=== PATIENT | female | born 1950 | race Caucasian/White ===

== ENCOUNTER 2016-06-26 14:34 | Emergency (ER) | payer OTHER ==
[~2016-06-26] VITALS: Ht 147.3 cm; Wt 70.0 kg
[~2016-06-26 14:34] MED LIST: ALBU0.086 NEB; ALBU6.7H INH; CYCL-36 PO; DILA2TAB4 PO; METF850T PO; NEBUKIT4; OMEP20CA5 PO; ZOVI400T15 PO
[2016-06-26 14:40] VITALS: BP 132/80; PULSE 86; RESP 16; TEMP 97.6; O2SAT 96
[2016-06-26 15:12] LABS: BLOOD, URINE SMALL (NEG); KETONE, URINE NEG (NEG); NITRITE,URINE NEG (NEG)
[2016-06-26 15:15] LABS: GLUCOSE,URINE 1000 OR GREATER mg/dL (NEG)
[2016-06-26] MEDS ORDERED: CRANCAP2 PO (15:16)
[2016-06-26] MEDS ORDERED: OMEP40CA2 PO (15:16)
[2016-06-26] MEDS ORDERED: DICL50TA3 PO (15:16)
[2016-06-26] MEDS ORDERED: ACYC400T PO (15:16)
[2016-06-26] MEDS ORDERED: METF500T PO (15:16)
--- NOTE | 2016-06-26 15:17 | PD ---
HPI Chief Complaint: Musculoskeletal Complaint Time Seen by Provider: 15:02 Travel History International Travel<30 days: No Contact w/Intl Traveler<30days: No Traveled to known affect area: No History of Present Illness HPI The patient was seen and examined in the presence of the nurse. She complains of back pain. She's had chronic back pain for years but it has been worse in the last 3 months. She seen both her primary physician and her neurosurgeon for this. She has been taking Motrin. Some severity is moderate. Worse with movement. She also complains of urinary frequency. No fever or acute injury. PFSH Past Medical History Arthritis: Yes Asthma: Yes Autoimmune Disease: No Blood Disorders: No Anxiety: No Depression: No Cancer: No Cardiovascular Problems: Yes High Cholesterol: Yes Chemotherapy: No Cerebrovascular Accident: Yes (since 1993) Diabetes: Yes (NON-INSULIN, ON METFORMIN) Diminished Hearing: No Endocrine: Yes Gastrointestinal Disorders: Yes (occ problems with n/v) GERD: Yes Glaucoma: No Genitourinary: No Headaches: No Hepatitis: Yes (HEPATITIS A-1966) Hiatal Hernia: Yes Hypertension: Yes (mild on no meds) Immune Disorder: No Kidney Stones: No Musculoskeletal: Yes Neurologic: Yes Psychiatric: No Reproductive: No Respiratory: Yes (pseudomonas [id number]) Migraines: Yes (1993) Radiation Therapy: No Renal Failure: No Seizures: No Sickle Cell Disease: No Thyroid Disease: No Ulcer: No Menopausal: Yes Past Surgical History Abdominal Surgery: Yes (myomectomy) AICD: No Appendectomy: No Arteriovenous Shunt: No Body Medical Devices: CERVICAL HARDWARE Cardiac Surgery: No Cholecystectomy: No Ear Surgery: No Endocrine Surgery: No Eye Surgery: No Genitourinary Surgery: Yes (bladder repair) Gynecologic Surgery: Yes Insulin Pump: No Joint Replacement: No Neurologic Surgery: Yes (ANTERIOR CERVICAL FUSION X 2) Oral Surgery: Yes (MANDIBLE TORUS EXCISION) Pacemaker: No Thoracic Surgery: No Other Surgery: Yes (LEFT CARPEL TUNNEL) Social History Alcohol Use: Yes (couple glasses of wine per week) Tobacco Use: No Substance Use: No Allergies-Medications (Allergen,Severity, Reaction): Coded Allergies: Cipro (Verified Allergy, Severe, ANAPHYLAXIS, 06/26/16) Codeine (Verified Allergy, Severe, ANAPHYLAXIS, 06/26/16) Demerol (Unverified Allergy, Severe, itching, 06/26/16) Hydrocodone (Verified Allergy, Severe, Anaphylaxis, 06/26/16) Keflex (Verified Allergy, Severe, ANAPHYLAXIS, 06/26/16) Nucynta (Verified Allergy, Severe, Anaphylaxis, 06/26/16) Sulfa (Verified Allergy, Severe, ANAPHYLAXIS, 06/26/16) Augmentin (Verified Adverse Reaction, Mild, GI UPSET, 06/26/16) E.E.S.-400 (Verified Adverse Reaction, Mild, GI UPSET, 06/26/16) Reported Meds & Prescriptions Reported Meds & Active Scripts Active Percocet (Oxycodone-Acetaminophen) 5-325 mg Tab 1 Tab PO Q6H PRN Reported Cranberry Urinary Comfort (Vitamins C & E) 1 Cap 1 Cap PO DAILY Acyclovir 400 Mg Tab 400 Mg PO BID Diclofenac Sodium DR (Diclofenac Sodium) 50 Mg Tabdr Unknown Dose PO BID Omeprazole 40 Mg Cap 40 Mg PO DAILY Metformin (Metformin HCl) 500 Mg Tab 500 Mg PO TIDPC With meals Review of Systems General / Constitutional: No: Fever HENT: No: Headaches Cardiovascular: No: Chest Pain or Discomfort Physical Exam Narrative GASTROINTESTINAL: Abdomen soft, non-tender, nondistended. Positive bowel sounds. No hepato-splenomegaly, or palpable masses. No guarding. NEUROLOGICAL: Awake and alert. Pupils are equal round and reactive. Motor and sensory grossly within normal limits. Five out of 5 muscle strength in all muscle groups. Normal speech. SKIN: Inspection shows no rash or ulcers. Palpation shows no induration or nodules. Data Data Last Documented VS Vital Signs Date Time Temp Pulse Resp B/P Pulse Ox O2 Delivery O2 Flow Rate FiO2 06/26/16 14:40 97.6 86 16 132/80 96 Orders Urinalysis - C+S If Indicated (06/26/16 14:44) Labs Laboratory Tests Test 06/26/16 14:58 Urine Color YELLOW Urine Turbidity CLEAR Urine pH 6.0 Urine Specific [place] 1.034 Urine Protein NEG mg/dL Urine Glucose (UA) 1000 OR GREATER mg/dL Urine Ketones NEG mg/dL Urine Occult Blood SMALL Urine Nitrite NEG Urine Bilirubin NEG Urine Leukocyte Esterase NEG Urine RBC 0-3 /hpf Urine WBC 0-2 /hpf Urine Squamous Epithelial 0-5 /hpf Cells Urine Yeast (Budding) RARE Microscopic Urinalysis Comment CULT NOT INDICATED MDM Medical Decision Making Medical Screen Exam Complete: Yes Emergency Medical Condition: Yes Medical Record Reviewed: Yes Differential Diagnosis Lumbar strain, sciatica, chronic back pain Narrative Course I have reviewed the patient's electronic medical record. Urinalysis shows a lot of glucose but no sign of infection. I then did an Accu-Chek which is 385 I gave her 12 units subcutaneous to his regular insulin. I recommended she check and record her sugar frequently and follow closer a diabetic diet and follow-up with her primary physician Patient is neurologically intact. No red flags to suggest emergent imaging is indicated today. I will try to write her something for pain in a limited amount but her allergy list is extensive I wrote her 10 Percocet Diagnosis Primary Impression: Back pain Qualified Code: M54.5 - Chronic right-sided low back pain without sciatica Additional Impressions: Hyperglycemia due to type 2 diabetes mellitus Qualified Code: E11.65 - Type 2 diabetes mellitus with hyperglycemia, without long-term current use of insulin Urinary frequency Additional Instructions: The patient was advised to follow up with their physician and return if they worsen. The patient was warned about potential sedation for the medications they will receive on prescription. Check and record blood sugar frequently Med/Other Pt SpecificInfo: Prescription(s) given Scripts Oxycodone-Acetaminophen (Percocet)5-325 mg Tab1 Tab PO Q6H PRN (PAIN) #10 TAB Ref 0 Prov:Jean Marroquin MD 06/26/16 Disposition: 01 DISCHARGE HOME Condition: Stable Jean Marroquin MD Jun 26, 2016 15:17
[2016-06-26 15:18] LABS: URINE COLOR YELLOW (YELLW/STRAW)
[2016-06-26 15:19] LABS: COMMENT (UR) CULT NOT INDICATED; CULTURE IF INDICATED CULT NOT INDICATED; RBC, URINE 0-3 /hpf (0-3); SQUAMOUS EPITHELIAL CELL URINE 0-5 /hpf (0-5); WBC, URINE 0-2 /hpf (0-5)
[2016-06-26] MEDS ORDERED: PERC5TAB12 PO (15:38)
[2016-06-26] MEDS ORDERED: INSULIN HUMAN REGULAR 1,000 UNITS/10 ML VIAL SQ ONE (15:45)
== END 2016-06-26 16:15 | disposition home or self-care (01) ==
LOC: PHED 14:34
DX: M54.5 Low back pain (principal); G89.29 Other chronic pain; E11.65 Type 2 diabetes mellitus with hyperglycemia; R35.0 Frequency of micturition; Z79.84 Long term (current) use of oral hypoglycemic drugs
CPT/HCPCS: 81001; 96372; 99283; J1815